=== PATIENT | female | born 1955 | race Caucasian/White ===

== ENCOUNTER 2018-12-03 10:10 | Emergency (ER) | payer SELFPAY ==
[2018-12-03] MEDS ORDERED: LIDOCAINE 2% VISCOUS SOLN 20 ML UDCUP PO ONE (11:15)
--- NOTE | 2018-12-03 11:15 | ER Document Report ---
ED Oral Problem - General Chief Complaint: Toothache Stated Complaint: ABSCESS Time Seen by Provider: 12/03/18 10:44 Mode of Arrival: Ambulatory Information source: Patient Notes: 53-year-old female presented to ED for complaint of right jaw pain and swelling. She states she has been taken Motrin and doing warm salt rinses. But she states that she needs some antibiotics and she knows she needs to go to the dentist. Patient was offered a dental block and a I&D of the abscess. She states no she could not stand any needles in her mouth. She states she wanted some antibiotics and be discharged. She states she knows she needs to go to the dentist to have the tooth removed but she does not want to have anything but antibiotics and pain medicine at this time. TRAVEL OUTSIDE OF THE [place] IN LAST 30 DAYS: No - HPI Patient complains to provider of: Swelling of jaw, Toothache Onset: Other - 4 days Onset: Gradual Quality of pain: Sharp, Throbbing Severity: Moderate Pain Level: 4 Associated symptoms: Jaw pain, Toothache Worsened by: Other Relieved by: Nothing Similar symptoms previously: Yes Recently seen / treated by doctor/dentist: No - Related Data Allergies/Adverse Reactions: No Known Allergies Allergy (Verified 12/03/18 10:11) Past Medical History - General Information source: Patient - Social History Smoking Status: Current Every Day Smoker Cigarette use (# per day): Yes - 1/3 pack/day Smoking Education Provided: Yes - 4 minutes Frequency of alcohol use: None Drug Abuse: None Occupation: [employer] Family History: Reviewed & Not Pertinent Patient has suicidal ideation: No Patient has homicidal ideation: No - Past Medical History Cardiac Medical History: Reports: Other - Ablation for arrhythmia. She did not know the diagnosis because it was 20 Pulmonary Medical History: Reports: None EENT Medical History: Reports: None Neurological Medical History: Reports: None Endocrine Medical History: Reports: None Renal/ Medical History: Reports: None Malignancy Medical History: Reports: None GI Medical History: Reports: None Musculoskeletal Medical History: Reports Hx Musculoskeletal Trauma - Fractured hip with surgery Skin Medical History: Reports None Psychiatric Medical History: Reports: None Traumatic Medical History: Reports: Hx Fractures - Hip Infectious Medical History: Reports: None Past Surgical History: Reports: Hx Orthopedic Surgery - ORIF of fractured hip - Immunizations Immunizations up to date: Yes Hx Diphtheria, Pertussis, Tetanus Vaccination: Yes Review of Systems - Review of Systems Constitutional: No symptoms reported EENT: No symptoms reported, Mouth pain, Mouth swelling, Dental problem Cardiovascular: No symptoms reported Respiratory: No symptoms reported Gastrointestinal: No symptoms reported Genitourinary: No symptoms reported Female Genitourinary: No symptoms reported Musculoskeletal: No symptoms reported Skin: No symptoms reported Hematologic/Lymphatic: No symptoms reported Neurological/Psychological: No symptoms reported -: Yes All other systems reviewed and negative Physical Exam - Vital signs Vitals: Temp Pulse Resp BP Pulse Ox 97.9 F 74 18 159/95 H 99 12/03/18 10:20 12/03/18 10:20 12/03/18 10:20 12/03/18 10:20 12/03/18 10:20 Interpretation: Normal - General General appearance: Appears well, Alert - HEENT Head: Normocephalic, Atraumatic Eyes: Normal Pupils: PERRL Ears: Normal External canal: Normal Tympanic membrane: Normal Sinus: Normal Nasal: Normal Mouth/Lips: Caries - Right lower jaw dental caries with abscess. Patient refused I&D of abscess. She states she did not want any needles at this time she states she wants some antibiotics and something for the discomfort for the next couple days and she would get into a dentist. She flatly refused any I&D of the abscess. Pharynx: Normal Neck: Anterior cervical chain - Respiratory Respiratory status: No respiratory distress Chest status: Nontender Breath sounds: Normal Chest palpation: Normal - Cardiovascular Rhythm: Regular Heart sounds: Normal auscultation Murmur: No - Abdominal Inspection: Normal Distension: No distension Bowel sounds: Normal Tenderness: Nontender Organomegaly: No organomegaly - Back Back: Normal, Nontender - Extremities General upper extremity: Normal inspection, Nontender, Normal color, Normal ROM, Normal temperature General lower extremity: Normal inspection, Nontender, Normal color, Normal ROM, Normal temperature, Normal weight bearing. No: Rupal's sign - Neurological Neuro grossly intact: Yes Cognition: Normal Orientation: AAOx4 [place] Coma Scale Eye Opening: Spontaneous [place] Coma Scale Verbal: Oriented Jamel Coma Scale Motor: Obeys Commands Jamel Coma Scale Total: 15 Speech: Normal Motor strength normal: LUE, RUE, LLE, RLE Sensory: Normal - Psychological Associated symptoms: Normal affect, Normal mood - Skin Skin Temperature: Warm Skin Moisture: Dry Skin Color: Normal Course - Re-evaluation Re-evalutation: 12/03/18 22:52 Patient was treated with viscous lidocaine and discharged home with prescription for penicillin VK and [place]. She states she did not want treatment for the abscess except for the antibiotics pain medicine and lidocaine. She states she would follow-up with a dentist as she did not like needles in her mouth. She states she would continue to do the salt water rinses. Presentation is most consistent with likely an infected tooth. Airway is patent. Vitals within normal limits. Patient is able swallow without any difficulty. There is no significant facial swelling. No evidence of Eliceo angina, apical abscess, or airway obstruction. Patient will be started on antibiotics. I've instructed to follow-up with dentistry as earliest ability for definitive management. At this time will discharge with return precautions and follow-up recommendations. Verbal discharge instructions given a the bedside and opportunity for questions given. Medication warnings reviewed. Patient is in agreement with this plan and has verbalized understanding of return precautions and the need for primary care follow-up in the next 24-72 hours. - Vital Signs Vital signs: Temp Pulse Resp BP Pulse Ox 98.1 F 91 20 157/99 H 98 12/03/18 11:27 12/03/18 11:27 12/03/18 11:27 12/03/18 11:27 12/03/18 11:27 Discharge - Discharge Clinical Impression: Pain due to dental caries Condition: Stable Disposition: HOME, SELF-CARE Additional Instructions: TOOTHACHE: Your pain is due to dental decay. The tooth must be repaired in order for you to feel better. You will, therefore, be referred to a dentist. We do not have dentists on the staff at [facility]. Severe swelling or drainage around a tooth usually means a dental abscess. This also requires evaluation and treatment by the dentist, but antibiotics may be prescribed while awaiting dental treatment. You should be rechecked immediately if you develop major swelling of the face, increasing pain, a lump in the jaw or gums, headache, difficulty swallowing, or fever. The swelling continue you will need to return and have the abscess opened up and drained and I have offered to drain it today and you stated no so I have not drained it. ORAL NARCOTIC MEDICATION: You have been given a prescription for pain control. This medication is a narcotic. It's best taken with food, as nausea can result if taken on an empty stomach. Don't operate machinery or drive within six hours of taking this medica tion. Do not combine this medicine with alcohol, or with any medication which can cause sedation (such as cold tablets or sleeping pills) unless you get permission from the physician. Narcotics tend to cause constipation. If possible, drink plenty of fluids and eat a diet high in fiber and fruits. Please be aware that prescription narcotics also have the potential for abuse. People become addicted to these medications because of the general sense of wellbeing that they induce. This feeling along with a significant reduction in tension, anxiety, and aggression provides a stimulating seductive quality to these drugs. Once your pain is under control, we encourage you to discard your unused narcotics. PENICILLIN V K: You have been given a prescription for Penicillin VK. Your physician has determined that this is the best antibiotic for your condition. Pen VK can be taken with meals, however more of the antibiotic gets into the bloodstream if it's taken on an empty stomach. Penicillin usually has no side effects. However, allergy to penicillins is common. If you have had an allergic reaction to any drug of the penicillin family, you should never take any other penicillin. Notify your doctor at once if you develop hives, itching, swelling, faintness, or shortness of breath. I have given you a syringe of viscous lidocaine. You place a small amount of this lidocaine on your finger and then apply it to the tooth and gum that is painful. You can do this up to every 3 or 4 hours. Please do not use it more often than every 3 or 4 hours. It is very important that you get this tooth cared for. This is only a temporary fix the infection will come back if you do not have the tooth treated. Smoking cigarettes will make this tooth much more painful it will also increase the infection. Please stop smoking FOLLOW-UP CARE: You have been referred for follow-up care to the dentists listed below. Call the dentists office for an appointment as you were instructed or within the next two days. If you experience worsening or a significant change in your symptoms, notify the physician immediately or return to the Emergency Department at any time for re-evaluation. [facility] [address] [facility] [address] [place] [address] [facility] [address] [facility] [address] [facility] [address] [email or web address] [address] [place] [address] Sunday- 8:00am to 5:00 pm Will see patients from other [facility]. Charges based on income and family size and accepts Medicare, Medicaid, and Insurances Will pull molars [facility] [address] Hours of Operation 8:00 am - 4:30 pm weekdays The following dental offices accept Medicaid: [facility] Dr. Shepherd Dr. Gregory Dr. Rodriguez Dr. Curtis [place], [place], and [facility] oral surgery Dr. Raphael ([place]) Dr. Boyer ([place]) [facility] Drs. Ott ([place]) Dr. Francis ([place]) [facility] [facility] Dr. Morfin ([place]) Drs. Stewart and ([place]) Medicaid Care Line Prescriptions: Hydrocodone/Acetaminophen [[place]re[place] 5-325 mg Tablet] 1 tab PO Q6HP PRN #5 tablet PRN Reason: Penicillin V Potassium [Penicillin Vk 500 mg Tablet] 500 mg PO BID #20 tablet Forms: Elevated Blood Pressure, Smoking Cessation Education, Return to Work
[2018-12-03 11:30] VITALS: BP 157/99
== END 2018-12-03 11:27 | disposition home or self-care (01) ==
LOC: ER 10:10
DX: K02.9 Dental caries, unspecified (principal); K08.89 Other specified disorders of teeth and supporting structures; R22.0 Localized swelling, mass and lump, head; R68.84 Jaw pain; F17.210 Nicotine dependence, cigarettes, uncomplicated
CPT/HCPCS: 99406; 99282; J3490

== ENCOUNTER 2020-01-12 20:15 | Emergency (ER) | payer SELFPAY ==
[2020-01-12 20:50] VITALS: BP 144/74
--- NOTE | 2020-01-12 21:22 | ER Document Report ---
ED General - General Chief Complaint: Toothache Stated Complaint: TOOTHACHE Notes: Patient is a 64-year-old white female with a past medical history significant for poor dentition and being a current everyday smoker presents to the emergency department with a chief complaint of dental pain. She states she is been calling multiple dentist but no one can see her for weeks. She states the pain is unbearable. She is taken ibuprofen at home without any significant im provement. She denies any dental trauma. Denies any chest pain, neck pain or shortness of breath. Denies any fever, nausea, vomiting, diarrhea, chills, night sweats, difficulty breathing or trouble with secretions. No tongue or throat swelling. TRAVEL OUTSIDE OF THE [place] IN LAST 30 DAYS: No - Related Data Allergies/Adverse Reactions: No Known Allergies Allergy (Verified 12/03/18 10:11) Home Medications: vitamins Past Medical History - Social History Smoking Status: Current Every Day Smoker Chew tobacco use (# tins/day): No Frequency of alcohol use: None Drug Abuse: None Family History: Reviewed & Not Pertinent Patient has suicidal ideation: No Patient has homicidal ideation: No Renal/ Medical History: Denies: Hx Peritoneal Dialysis Musculoskeletal Medical History: Reports Hx Musculoskeletal Trauma - Fractured hip with surgery Traumatic Medical History: Reports: Hx Fractures - Hip Past Surgical History: Reports: Hx Orthopedic Surgery - ORIF of fractured hip - Immunizations Immunizations up to date: Yes Hx Diphtheria, Pertussis, Tetanus Vaccination: Yes Review of Systems - Review of Systems EENT: Dental problem -: Yes All other systems reviewed and negative Physical Exam - Vital signs Vitals: Temp Pulse Resp BP Pulse Ox 97.5 F 93 18 144/74 H 96 01/12/20 20:49 01/12/20 20:49 01/12/20 20:49 01/12/20 20:49 01/12/20 20:49 - General General appearance: Appears well, Alert In distress: None - HEENT Head: Normocephalic, Atraumatic Eyes: Normal Conjunctiva: Normal Extraocular movements intact: Yes Eyelashes: Normal Pupils: PERRL Nerve palsy: No Ears: Normal External canal: Normal Tympanic membrane: Normal Sinus: Normal Nasal: Normal Mouth/Lips: Normal Mucous membranes: Normal Pharynx: Other - Poor dentition throughout. Left lower molars all tender to percussion. No gingival abscess formations. No significant erythema or swelling. Neck: Normal. No: Lymphadenopathy - Respiratory Respiratory status: No respiratory distress Chest status: Nontender Breath sounds: Normal Chest palpation: Normal - Cardiovascular Rhythm: Regular Heart sounds: Normal auscultation - Neurological Neuro grossly intact: Yes Cognition: Normal Orientation: AAOx4 Jamel Coma Scale Eye Opening: Spontaneous [place] Coma Scale Verbal: Oriented [place] Coma Scale Motor: Obeys Commands Jamel Coma Scale Total: 15 Speech: Normal Motor strength normal: LUE, RUE, LLE, RLE Sensory: Normal - Psychological Associated symptoms: Normal affect, Normal mood - Skin Skin Temperature: Warm Skin Moisture: Dry Skin Color: Normal Course - Re-evaluation Re-evalutation: 01/12/20 21:21 Patient will be started on Pen-Vee K. Given a short course of tramadol. Encouraged to continue outpatient follow-up with a dentist. Advise she return here or any ER immediately with any new, persistent or worsening symptoms. She verbalized understood and agreed. - Vital Signs Vital signs: Temp Pulse Resp BP Pulse Ox 97.5 F 93 18 144/74 H 96 01/12/20 20:49 01/12/20 20:49 01/12/20 20:49 01/12/20 20:49 01/12/20 20:49 Discharge - Discharge Clinical Impression: Dental abscess, Dentalgia Condition: Stable Disposition: HOME, SELF-CARE Instructions: Toothache ([facility]) Additional Instructions: Follow-up with your dentist as soon as possible for continued care and management. Return here or any ER immediately with any new, persistent or worsening symptoms. Prescriptions: Tramadol HCl [Ultram 50 mg Tablet] 50 mg PO Q6HP PRN #12 tablet PRN Reason: Penicillin V Potassium [Penicillin Vk 500 mg Tablet] 500 mg PO QID #40 tablet Forms: Smoking Cessation Education
== END 2020-01-12 21:22 | disposition home or self-care (01) ==
LOC: ER 20:15
DX: K04.7 Periapical abscess without sinus (principal); K08.89 Other specified disorders of teeth and supporting structures; F17.200 Nicotine dependence, unspecified, uncomplicated
CPT/HCPCS: 99282

== ENCOUNTER 2020-03-31 10:56 | Emergency (ER) | payer SELFPAY ==
[2020-03-31 11:36] LABS: ABSOLUTE BASOPHILS # (AUTO) 0.1 10^3/uL (0.0-0.2); ABSOLUTE EOSINOPHILS # (AUTO) 0.1 10^3/uL (0.0-0.6); ABSOLUTE LYMPHOCYTES (AUTO) 2.3 10^3/uL (0.5-4.7); ABSOLUTE MONOCYTES (AUTO) 1.1 10^3/uL (0.1-1.4); ABSOLUTE NEUT (AUTO) 8.4 10^3/uL (1.7-8.2); BASOPHILS % (AUTO) 0.8 % (0-2); EOSINOPHILS % (AUTO) 1.1 % (0-6); HEMATOCRIT 38.8 % (36.0-47.0); HEMOGLOBIN 13.4 g/dL (12.0-15.5); LYMPHOCYTES % (AUTO) 18.9 % (13-45); MEAN CORPUSCULAR HEMOGLOBIN 33.6 pg (27.0-33.4); MEAN CORPUSCULAR HGB CONC 34.5 g/dL (32.0-36.0); MEAN CORPUSCULAR VOLUME 97 fl (80-97); PLATELET COUNT 255 10^3/uL (150-450); RED BLOOD COUNT 3.99 10^6/uL (3.72-5.28); RED CELL DISTRIBUTION WIDTH 13.5 % (11.5-14.0); SEGMENTED NEUTROPHILS % (AUTO) 70.2 % (42-78); TOTAL CELLS COUNTED % (AUTO) 100 %
[2020-03-31 11:55] LABS: ALBUMIN 3.6 g/dL (3.5-5.0); ALKALINE PHOSPHATASE 62 U/L (38-126); ANION GAP 5 (5-19); ASPARTATE AMINO TRANSFERASE 20 U/L (14-36); BILIRUBIN,TOTAL 0.4 mg/dL (0.2-1.3); BLOOD UREA NITROGEN 13 mg/dL (7-20); CALCIUM 9.1 mg/dL (8.4-10.2); CARBON DIOXIDE 22 mmol/L (22-30); CHLORIDE 110 mmol/L (98-107); GLUCOSE 127 mg/dL (75-110); TOTAL PROTEIN 6.6 g/dL (6.3-8.2)
[2020-03-31 12:27] LABS: APPEARANCE,URINE CLEAR; BILIRUBIN,URINE NEGATIVE (NEGATIVE); COLOR,URINE YELLOW; GLUCOSE, URINE NEGATIVE (NEGATIVE); KETONES,URINE NEGATIVE (NEGATIVE); PROTEIN,URINE NEGATIVE (NEGATIVE); URINE SPECIFIC GRAVITY 1.011; UROBILINOGEN,URINE NEGATIVE mg/dL (<2.0)
--- NOTE | 2020-03-31 12:30 | RADIOLOGY REPORT (SQ) ---
EXAM DESCRIPTION: CT ABD/PELVIS NO ORAL OR IV IMAGES COMPLETED DATE/TIME: 03/31/2020 11:41 am REASON FOR STUDY: left flank pain COMPARISON: None. TECHNIQUE: CT scan of the abdomen and pelvis performed without intravenous or oral contrast. Images reviewed with lung, soft tissue, and bone windows. Reconstructed coronal and sagittal MPR images revi ewed. All images stored on PACS. All CT scanners at this facility use dose modulation, iterative reconstruction, and/or weight based d osing when appropriate to reduce radiation dose to as low as reasonably achievable (ALARA). [facility]: Dose Right [facility]: CareDose [facility]: Dose Right [facility]: Teradose 4D [facility]: Smart Sharewire RADIATION DOSE: CT Rad equipment meets quality standard of care and radiation dose reduction techniq ues were employed. CTDIvol: 5.5 mGy. DLP: 286 mGy-cm.mGy. LIMITATIONS: None. FINDINGS: LOWER CHEST: Trace pericardial effusion. Scattered coronary atherosclerosis. NON-CONTRASTED LIVER, SPLEEN, ADRENALS: Evaluation limited by lack of IV contrast. 21 mm low-attenua tion left adrenal nodule (-1 Hounsfield units) compatible with adrenal adenoma. No other identified significant masses. PANCREAS: No masses. No peripancreatic inflammatory changes. GALLBLADDER: No identified stones by CT criteria. No inflammatory changes to suggest cholecystitis. RIGHT KIDNEY AND URETER: Mildly atrophic. Cortical cyst. Additional cortical intermediate hypodense lesion, likely cyst but technically indeterminate. Punctate nonobstructing stone. LEFT KIDNEY AND URETER: No discrete mass although evaluation limited without intravenous contrast. A han of cortical scarring/thinning. Punctate nonobstructing cortical calcification. No hydronephro sis or hydroureter. AORTA AND RETROPERITONEUM: No aneurysm. No retroperitoneal masses or adenopathy. BOWEL AND PERITONEAL CAVITY: Multiple colonic diverticula. Area of pericolonic stranding and wall th ickening about the descending colon (series 3, image 41 - 54). No drainable collection. No large vo lume free intraperitoneal gas. No evidence of intestinal obstruction. APPENDIX: Normal. PELVIS, BLADDER, AND ABDOMINAL WALL:No abnormal masses. No free fluid. Bladder normal. BONES: No acute bony abnormality. No discrete lytic or blastic osseous lesions. Left femoral hardwa re, partially evaluated. Schmorl's node at T11. OTHER: No other significant finding. IMPRESSION: 1. Acute uncomplicated diverticulitis of the descending colon. No drainable collection . 2. Low-density renal lesions, likely cyst but indeterminate on this single phase scan. Ultrasound o r multiphase CT/MR could be considered for confirmation. Punctate nonobstructing stones. 3. 21 mm low-density left adrenal lesion compatible with adrenal adenoma. COMMENT: Quality ID # [id number]: Final reports with documentation of one or more dose reduction techniques (e.g., Automated exposure control, adjustment of the mA and/or kV according to patient size, use of iterative reconstruction technique) TECHNICAL DOCUMENTATION: JOB ID: [id number] 2010 [employer]- All Rights Reserved Reading location - IP/workstation name: [email or web address]
[2020-03-31 13:29] VITALS: BP 134/72
--- NOTE | 2020-03-31 14:06 | ER Document Report ---
ED General - General Chief Complaint: Flank Pain Stated Complaint: FLANK PAIN Time Seen by Provider: 03/31/20 11:13 Mode of Arrival: Ambulatory Information source: Patient TRAVEL OUTSIDE OF THE [place] IN LAST 30 DAYS: No - HPI Notes: Patient presents with 2 days of left flank and left lower abdominal pain. She states it has been constant. Is worse with movement and better with rest. It does radiate from the abdomen into the back. It is a sharp sensation. She has had some nausea but no vomiting or diarrhea. She has had some pain with urination. No fevers. - Related Data Allergies/Adverse Reactions: No Known Allergies Allergy (Verified 03/31/20 11:21) Past Medical History - General Information source: Patient - Social History Smoking Status: Current Some Day Smoker Frequency of alcohol use: Occasional Drug Abuse: None Family History: Reviewed & Not Pertinent Patient has homicidal ideation: No Renal/ Medical History: Denies: Hx Peritoneal Dialysis Musculoskeletal Medical History: Reports Hx Musculoskeletal Trauma - Fractured hip with surgery Traumatic Medical History: Reports: Hx Fractures - Hip Past Surgical History: Reports: Hx Orthopedic Surgery - ORIF of fractured hip - Immunizations Immunizations up to date: Yes Hx Diphtheria, Pertussis, Tetanus Vaccination: Yes Review of Systems - Review of Systems Constitutional: denies: Chills, Fever Cardiovascular: denies: Chest pain, Palpitations Respiratory: denies: Cough, Short of breath -: Yes All other systems reviewed and negative Physical Exam - Vital signs Vitals: Temp Pulse Resp BP Pulse Ox 97.7 F 90 18 130/68 H 98 03/31/20 11:00 03/31/20 11:00 03/31/20 11:00 03/31/20 11:00 03/31/20 11:00 Interpretation: Normal - General General appearance: Appears well, Alert - HEENT Head: Normocephalic, Atraumatic Eyes: Normal Pupils: PERRL - Respiratory Respiratory status: No respiratory distress Chest status: Nontender Breath sounds: Normal Chest palpation: Normal - Cardiovascular Rhythm: Regular Heart sounds: Normal auscultation Murmur: No - Abdominal Inspection: Normal Distension: No distension Bowel sounds: Hypoactive Tenderness: Tender - Patient has left lower quadrant tenderness to palpation but no rebound or guarding Organomegaly: No organomegaly - Back Back: Normal, Nontender - Extremities General upper extremity: Normal inspection, Nontender, Normal color, Normal ROM, Normal temperature General lower extremity: Normal inspection, Nontender, Normal color, Normal ROM, Normal temperature, Normal weight bearing. No: Rupal's sign - Neurological Neuro grossly intact: Yes Cognition: Normal Orientation: AAOx4 Jam[place] Coma Scale Eye Opening: Spontaneous [place] Coma Scale Verbal: Oriented [place] Coma Scale Motor: Obeys Commands [place] Coma Scale Total: 15 Speech: Normal Motor strength normal: LUE, RUE, LLE, RLE Sensory: Normal - Psychological Associated symptoms: Normal affect, Normal mood - Skin Skin Temperature: Warm Skin Moisture: Dry Skin Color: Normal Course - Re-evaluation Re-evalutation: 03/31/20 14:[address] is consistent with diverticulitis. She also appears to have a mild UTI. I discussed admission versus discharge with the patient. She states she prefers to be discharged. I educated her about signs and symptoms that would be worrisome such that she should return. I discussed bowel perforation with her. She states at this time she still prefers to be discharged and will return if she has any concerns. I think discharge is reasonable at this time his CT shows no signs of perforation or abscess. She only has a minimally elevated white count. Her vital signs are also stable. Her abdominal exam is nonsurgical at this time. - Vital Signs Vital signs: Temp Pulse Resp BP Pulse Ox 98.8 F 86 18 134/72 H 95 03/31/20 13:28 03/31/20 13:28 03/31/20 13:28 03/31/20 13:28 03/31/20 13:28 - Laboratory Result Diagrams: 03/31/20 11:17 03/31/20 11:17 Laboratory results interpreted by me: 03/31/20 03/31/20 03/31/20 11:17 11:17 12:03 WBC 12.0 H MCH 33.6 H Absolute Neuts (auto) 8.4 H Sodium 136.8 L Chloride 110 H Glucose 127 H Leukocyte Esterase Rfl MODERATE H Urine Ascorbic Acid 20 H - Diagnostic Test Radiology reviewed: Image reviewed, Reports reviewed Discharge - Discharge Clinical Impression: Diverticulitis Condition: Stable Disposition: HOME, SELF-CARE Instructions: Diverticulitis ([facility]) Additional Instructions: Please call your primary care physician as soon as possible to arrange follow-up Prescriptions: Amoxicillin/Potassium Clav [Augmentin 875-125 Tablet] 1 tab PO BID 10 Days #20 tablet Metronidazole [Flagyl 500 mg Tablet] 500 mg PO BID 10 Days #20 tablet Hydrocodone/Acetaminophen [[place] 5-325 mg Tablet] 1 tab PO Q6 PRN 3 Days #12 tablet PRN Reason: Forms: Return to Work Referrals: [facility] [Provider Group] - Follow up in 3-5 days
== END 2020-03-31 14:16 | disposition home or self-care (01) ==
LOC: ER 10:56
DX: K57.32 Diverticulitis of large intestine without perforation or abscess without bleeding (principal); D72.829 Elevated white blood cell count, unspecified; R11.0 Nausea; R30.9 Painful micturition, unspecified; F17.200 Nicotine dependence, unspecified, uncomplicated
CPT/HCPCS: 36415; 74176; 80053; 81001; 85025; 99284